=== PATIENT | male | born 1970 | race Caucasian/White ===

== ENCOUNTER 2023-05-08 23:37 | Inpatient (IN) | payer BC ==
[~2023-05-08] VITALS: Ht 185.4 cm; Wt 147.0 kg
[2023-05-08] MEDS ORDERED: LABETALOL HCL 5 MG/ML 20 ML VIAL IVP PRN (23:45)
[2023-05-08 23:54] LABS: BASOPHILS % (AUTO) 0.7 % (0.0-2.0); EOSINOPHILS % (AUTO) 2.3 % (1.0-6.0); HEMATOCRIT 44.8 % (41-53); HEMOGLOBIN 15.7 g/dL (13.5-17.5); LYMPHOCYTES # (AUTO) 2.3 K/uL (1.0-4.8); LYMPHOCYTES % (AUTO) 35.3 % (22.0-44.0); MEAN CORPUSCULAR HEMOGLOBIN 30.7 pg (26.0-34.0); MEAN CORPUSCULAR VOLUME 88 fL (80-100); MONOCYTES # (AUTO) 0.7 K/uL (0.1-1.0); MONOCYTES % (AUTO) 10.8 % (2.0-9.0); NEUTROPHILS # (AUTO) 3.3 K/uL (1.8-7.7); NEUTROPHILS % (AUTO) 50.9 % (40.0-70.0); PLATELET COUNT (AUTO) 187 K/uL (150-450); RED CELL DISTRIBUTION WIDTH 13.7 % (11.5-14.5); WHITE BLOOD COUNT (AUTO) 6.5 K/uL (4.5-11.0)
[2023-05-09] VITALS (13 sets, daily range): BP systolic 126–186; BP diastolic 69–101; PULSE 88–99; RESP 18–29; TEMP 97.7–100.4; O2SAT 93–100
[2023-05-09 00:07] LABS: PROTHROMBIN TIME 10.9 SEC (9.4-11.6)
[2023-05-09] MEDS ORDERED: SODIUM CHLORIDE 0.9% 100 ML ONE (00:13)
[2023-05-09] MEDS ORDERED: IOHEXOL 350 MG/ML 100 ML VIAL ONE (00:14)
[2023-05-09 00:18] LABS: ANION GAP 11 mmol/L (8-16); CARBON DIOXIDE 25 mmol/L (22-29); CHLORIDE 101 mmol/L (98-107); CREATININE 1.13 mg/dL (0.60-1.30); GLOMERULAR FILTR. RATE CALC > 60 mL/min (>60); GLUCOSE,RANDOM 168 mg/dL (70-110); POTASSIUM 3.6 mmol/L (3.5-5.1); SODIUM SERUM 137 mmol/L (136-145); UREA NITROGEN, BLOOD 19 mg/dL (7-18)
[2023-05-09 00:25] LABS: ALANINE AMINOTRANSFERASE 27 U/L (12-78); ALBUMIN 4.3 g/dL (3.4-5.0); ALKALINE PHOSPHATASE 87 U/L (46-116); ASPARTATE AMINOTRANSFERASE 31 U/L (15-37); BILIRUBIN,TOTAL 0.8 mg/dL (0.1-1.0); TOTAL PROTEIN, SERUM 7.4 g/dL (6.4-8.2)
[2023-05-09 00:43] LABS: TROPONIN I-HIGH SENSITIVITY 32 ng/L (<76)
[2023-05-09] MEDS: LABETALOL HCL 5 MG/ML 20 ML VIAL IVP PRN (01:08)
[2023-05-09 01:37] LABS: APPEARANCE,URINE CLEAR (CLEAR); BILIRUBIN,URINE NEGATIVE (NEGATIVE); COLOR,URINE COLORLESS (YELLOW); GLUCOSE, URINE (UA) 300-500 mg/dL (NEGATIVE); LEUKOCYTE ESTERASE ,URINE NEGATIVE (NEGATIVE); NITRATE,URINE NEGATIVE (NEGATIVE); OCCULT BLOOD,URINE NEGATIVE (NEGATIVE); PH,URINE 7.5 (5.0-8.0); PROTEIN,URINE NEGATIVE (NEGATIVE); SPECIFIC GRAVITIY, URINE 1.017 (1.003-1.030); UROBILINOGEN,URINE <=1.0 mg/dL (<=1.0)
[2023-05-09 01:40] LABS: PH,URINE DRUG SCREEN 7.5 (5.0-8.0)
[2023-05-09 01:43] LABS: ALCOHOL, URINE DRUG SCREEN NEGATIVE (NEGATIVE); AMPHET/METH SCREEN,URINE NEGATIVE (NEGATIVE); BARBITURATE SCREEN, URINE NEGATIVE (NEGATIVE); BENZODIAZEPINES SCREEN,URINE NEGATIVE (NEGATIVE); CANNABINOID SCREEN,URINE POSITIVE (NEGATIVE); COCAINE SCREEN,URINE NEGATIVE (NEGATIVE); METHADONE SCREEN, URINE NEGATIVE (NEGATIVE); OPIATE SCREEN,URINE NEGATIVE (NEGATIVE); PHENCYCLIDINE SCREEN,URINE NEGATIVE (NEGATIVE)
[2023-05-09 01:52] LABS: BACTERIA,URINE None Seen /HPF (None Seen); RBC,URINE None Seen /HPF (0-2); SQUAMOUS EPITHELIAL CELL,UR None Seen /LPF (None Seen); WBC,URINE None Seen /HPF (0-5)
[2023-05-09] MEDS: ONDANSETRON HCL 4 MG/2 ML VIAL IVP ONE (03:00)
[2023-05-09] MEDS: PROPOFOL 1000 MG/ISO-OSM 100 ML IV PRN ×2 (03:39→13:41)
[2023-05-09 04:47] LABS: ABG BASE EXCESS -3.7 mmol/L (-2.0-3.0); ABG CARBOXYHEMOGLOBIN 0.5 % (0.0-1.5); ABG HCO3 21.6 mmol/L (22.0-26.0); ABG METHEMOGLOBIN 0.3 % (0.0-1.5); ABG OXYGEN CONTENT 25.2 mL/dL (15.0-23.0); ABG OXYGEN SATURATION 99.3 % (95.0-98.0); ABG OXYHEMOGLOBIN 98.5 % (94.0-100.0); ABG PCO2 42 mmHg (35-45); ABG PH 7.341 (7.35-7.450); ABG TOTAL HEMOGLOBIN 17.9 G/dL (12.0-18.0); PO2, ARTERIAL BG 211.5 mmHg (84.0-92.0); SOURCE, BLOOD GAS ARTERIAL; TEMPERATURE, FAHRENHEIT, BG 97.9 FAHREN (96.0-98.6)
[2023-05-09 04:50] LABS: ALLEN TEST, BLOOD GAS Positive; O2 DEVICE,BLOOD GAS VENT (ROOM AIR); PEEP,BG 5 cm H2O; SITE, BLOOD GAS RT RADIAL; VT, ABG 450 ml
[2023-05-09] MEDS ORDERED: ONDANSETRON HCL 4 MG/2 ML VIAL IVP PRN (07:45)
[2023-05-09] MEDS: SODIUM CHLORIDE 0.9% 1,000 ML IV ONE (08:35)
[2023-05-09] MEDS: LevETIRAcetam 500 MG in DEXTROSE 5%-WATER 100 ML IV SCH (08:35)
[2023-05-09] MEDS ORDERED: SODIUM CHLORIDE 0.9% 250 ML IV ONE (08:44)
[2023-05-09] MEDS: HydrALAZINE HCL 20 MG/ML VIAL IVP PRN (08:45)
[2023-05-09] MEDS: AmLODIPine BESYLATE 5 MG TABLET PO SCH (09:41)
[2023-05-09] MEDS: PANTOPRAZOLE SODIUM 40 MG/VIAL IVP SCH (09:41)
[2023-05-09] MEDS: DOCUSATE SODIUM 100 MG CAPSULE PO SCH (09:41)
[2023-05-09] MEDS: ACETAMINOPHEN 325 MG TABLET PO PRN (10:10)
[2023-05-09] MEDS: NiCARDipine HCL 25 MG in SODIUM CHLORIDE 0.9% 240 ML IV PRN (10:10)
[2023-05-09] MEDS ORDERED: PROPOFOL 1000 MG/ISO-OSM 100 ML ONE (13:38)
[2023-05-09 15:52] LABS: APPEARANCE,URINE HAZY (CLEAR); BILIRUBIN,URINE NEGATIVE (NEGATIVE); COLOR,URINE YELLOW (YELLOW); GLUCOSE, URINE (UA) 150-200 mg/dL (NEGATIVE); KETONES,URINE NEGATIVE (NEGATIVE); LEUKOCYTE ESTERASE ,URINE NEGATIVE (NEGATIVE); NITRATE,URINE NEGATIVE (NEGATIVE); OCCULT BLOOD,URINE NEGATIVE (NEGATIVE); PH,URINE 5.5 (5.0-8.0); PROTEIN,URINE 100-200,SEE CONFIRM mg/dL (NEGATIVE); SPECIFIC GRAVITIY, URINE 1.044 (1.003-1.030); UROBILINOGEN,URINE <=1.0 mg/dL (<=1.0)
[2023-05-09 16:21] LABS: RBC,URINE None Seen /HPF (0-2)
[2023-05-09 16:22] LABS: BACTERIA,URINE Moderate /HPF (None Seen)
[2023-05-09 16:24] LABS: SULFOSALICYLIC ACID,URINE 3+ (Negative)
[2023-05-09] MEDS: CHLORHEXIDINE GLUCONATE 2% TOWELETTE [2'S/6'S] TP SCH (21:48)
[2023-05-10] VITALS (15 sets, daily range): BP systolic 131–155; BP diastolic 67–79; PULSE 85–108; RESP 24–32; TEMP 99–99.7; O2SAT 96–98
[2023-05-10 06:07] LABS: BASOPHILS % (AUTO) 0.1 % (0.0-2.0); EOSINOPHILS % (AUTO) 0 % (1.0-6.0); HEMATOCRIT 43.2 % (41-53); HEMOGLOBIN 15.2 g/dL (13.5-17.5); LYMPHOCYTES # (AUTO) 1.4 K/uL (1.0-4.8); LYMPHOCYTES % (AUTO) 11.9 % (22.0-44.0); MEAN CORPUSCULAR HEMOGLOBIN 30.9 pg (26.0-34.0); MEAN CORPUSCULAR HGB CONC 35.1 G/dL (31.0-37.0); MEAN CORPUSCULAR VOLUME 88 fL (80-100); MONOCYTES # (AUTO) 1.1 K/uL (0.1-1.0); MONOCYTES % (AUTO) 9.4 % (2.0-9.0); NEUTROPHILS # (AUTO) 9.1 K/uL (1.8-7.7); NEUTROPHILS % (AUTO) 78.6 % (40.0-70.0); PLATELET COUNT (AUTO) 192 K/uL (150-450); RED CELL DISTRIBUTION WIDTH 13.7 % (11.5-14.5); WHITE BLOOD COUNT (AUTO) 11.6 K/uL (4.5-11.0)
[2023-05-10 06:08] LABS: CREATININE 1.33 mg/dL (0.60-1.30); POTASSIUM 3.6 mmol/L (3.5-5.1)
[2023-05-10] MEDS: LOSARTAN POTASSIUM 25 MG TABLET PO SCH (09:16)
[2023-05-10] MEDS ORDERED: SODIUM CHLORIDE 3% 500 ML IV SCH (10:45)
[2023-05-10] MEDS ORDERED: DEXTROSE 50%-WATER 25 GM/50 ML SYRINGE IVP PRN (11:45)
[2023-05-10] MEDS: INSULIN LISPRO 100 UNITS/ML SQ PRN (12:02)
[2023-05-10] MEDS: SODIUM CHLORIDE 3% 500 ML IV SCH (12:19)
[2023-05-10 13:01] LABS: GLUCOMETER DEV NAME(LOC) ICUN.5; GLUCOSE,POINT OF CARE 262 MG/DL (70-110)
[2023-05-10 20:01] LABS: GLUCOMETER DEV NAME(LOC) ICUN.5; GLUCOSE,POINT OF CARE 188 MG/DL (70-110)
[2023-05-10] MEDS: LOSARTAN POTASSIUM 50 MG TABLET PO SCH (21:21)
[2023-05-10] MEDS: DOCUSATE SODIUM 100 MG/10 ML LIQUID UDCUP NG SCH (21:21)
[2023-05-10] MEDS: FentaNYL CIT 1000MCG/0.9% NACL 100 ML IV PRN (22:19)
[2023-05-10] MEDS: HydrALAZINE HCL 20 MG/ML VIAL IVP PRN (23:35)
[2023-05-11] VITALS (15 sets, daily range): BP systolic 105–164; BP diastolic 55–74; PULSE 70–103; RESP 19–28; TEMP 98.2–99.8; O2SAT 92–96
[2023-05-11 00:16] LABS: GLUCOSE,POINT OF CARE 215 MG/DL (70-110)
[2023-05-11] MEDS ORDERED: SODIUM CHLORIDE 0.9% 250 ML IV ONE (03:20)
[2023-05-11 05:58] LABS: BASOPHILS % (AUTO) 0.2 % (0.0-2.0); EOSINOPHILS % (AUTO) 0 % (1.0-6.0); HEMATOCRIT 43.2 % (41-53); HEMOGLOBIN 14.5 g/dL (13.5-17.5); LYMPHOCYTES # (AUTO) 0.9 K/uL (1.0-4.8); LYMPHOCYTES % (AUTO) 6.6 % (22.0-44.0); MEAN CORPUSCULAR HEMOGLOBIN 30.2 pg (26.0-34.0); MEAN CORPUSCULAR HGB CONC 33.6 G/dL (31.0-37.0); MEAN CORPUSCULAR VOLUME 90 fL (80-100); MONOCYTES # (AUTO) 1.2 K/uL (0.1-1.0); MONOCYTES % (AUTO) 9.4 % (2.0-9.0); NEUTROPHILS # (AUTO) 11.1 K/uL (1.8-7.7); NEUTROPHILS % (AUTO) 83.8 % (40.0-70.0); PLATELET COUNT (AUTO) 175 K/uL (150-450); RED CELL DISTRIBUTION WIDTH 13.9 % (11.5-14.5); WHITE BLOOD COUNT (AUTO) 13.3 K/uL (4.5-11.0)
[2023-05-11 06:11] LABS: ANION GAP 11 mmol/L (8-16); CALCIUM, TOTAL 7.5 mg/dL (8.8-10.5); CARBON DIOXIDE 21 mmol/L (22-29); CHLORIDE 118 mmol/L (98-107); CREATININE 1.22 mg/dL (0.60-1.30); GLOMERULAR FILTR. RATE CALC > 60 mL/min (>60); GLUCOSE,RANDOM 239 mg/dL (70-110); POTASSIUM 3.9 mmol/L (3.5-5.1); SODIUM SERUM 150 mmol/L (136-145); UREA NITROGEN, BLOOD 28 mg/dL (7-18)
[2023-05-11 12:36] LABS: GLUCOSE,POINT OF CARE 239 MG/DL (70-110)
[2023-05-11] MEDS: DEXMEDETOMIDINE HCL 400 MCG in SODIUM CHLORIDE 0.9% 96 ML IV PRN (17:12)
[2023-05-11 18:46] LABS: GLUCOSE,POINT OF CARE 220 MG/DL (70-110)
[2023-05-11 18:55] LABS: GLUCOMETER DEV NAME(LOC) ICUN.5; GLUCOSE,POINT OF CARE 201 MG/DL (70-110)
[2023-05-11] MEDS: HydrALAZINE HCL 25 MG TABLET PO SCH (21:00)
[2023-05-12] VITALS (14 sets, daily range): BP systolic 121–137; BP diastolic 66–77; PULSE 68–78; RESP 18–28; TEMP 97.7–99.6; O2SAT 92–98
[2023-05-12 01:16] LABS: GLUCOMETER DEV NAME(LOC) ICUN.5; GLUCOSE,POINT OF CARE 203 MG/DL (70-110)
[2023-05-12 06:01] LABS: GLUCOMETER DEV NAME(LOC) ICUN.5; GLUCOSE,POINT OF CARE 200 MG/DL (70-110)
[2023-05-12 06:20] LABS: BASOPHILS % (AUTO) 0.2 % (0.0-2.0); EOSINOPHILS % (AUTO) 0 % (1.0-6.0); HEMATOCRIT 41.9 % (41-53); HEMOGLOBIN 13.8 g/dL (13.5-17.5); LYMPHOCYTES % (AUTO) 11.5 % (22.0-44.0); MEAN CORPUSCULAR HEMOGLOBIN 30.3 pg (26.0-34.0); MEAN CORPUSCULAR HGB CONC 32.9 G/dL (31.0-37.0); MEAN CORPUSCULAR VOLUME 92 fL (80-100); MONOCYTES # (AUTO) 0.7 K/uL (0.1-1.0); MONOCYTES % (AUTO) 8.4 % (2.0-9.0); NEUTROPHILS % (AUTO) 79.9 % (40.0-70.0); PLATELET COUNT (AUTO) 161 K/uL (150-450); RED BLOOD CELL COUNT(AUTO) 4.55 MIL/uL (4.50-5.90); RED CELL DISTRIBUTION WIDTH 14.5 % (11.5-14.5); WHITE BLOOD COUNT (AUTO) 8.7 K/uL (4.5-11.0)
[2023-05-12 06:28] LABS: ANION GAP 13 mmol/L (8-16); CARBON DIOXIDE 21 mmol/L (22-29); CHLORIDE 128 mmol/L (98-107); CREATININE 1.04 mg/dL (0.60-1.30); GLOMERULAR FILTR. RATE CALC > 60 mL/min (>60); GLUCOSE,RANDOM 208 mg/dL (70-110); POTASSIUM 3.7 mmol/L (3.5-5.1); UREA NITROGEN, BLOOD 33 mg/dL (7-18)
[2023-05-12 06:42] LABS: SODIUM SERUM 162 mmol/L (136-145)
[2023-05-12 12:17] LABS: GLUCOSE,POINT OF CARE 202 MG/DL (70-110)
[2023-05-12 15:33] LABS: ABG BASE EXCESS -7.9 mmol/L (-2.0-3.0); ABG CARBOXYHEMOGLOBIN 0.4 % (0.0-1.5); ABG METHEMOGLOBIN 0.1 % (0.0-1.5); ABG OXYHEMOGLOBIN 97.5 % (94.0-100.0); ABG PCO2 34 mmHg (35-45); ABG PH 7.339 (7.35-7.450); ABG TOTAL HEMOGLOBIN 14.5 G/dL (12.0-18.0); ALLEN TEST, BLOOD GAS Positive; O2 DEVICE,BLOOD GAS VENTILATOR (ROOM AIR); PO2, ARTERIAL BG 109.1 mmHg (84.0-92.0); SITE, BLOOD GAS RT RADIAL; SOURCE, BLOOD GAS ARTERIAL; TEMPERATURE, FAHRENHEIT, BG 99.3 FAHREN (96.0-98.6)
[2023-05-12 15:34] LABS: PEEP,BG 5 cm H2O; VT, ABG 18 ml
[2023-05-12 19:11] LABS: GLUCOSE,POINT OF CARE 223 MG/DL (70-110)
[2023-05-13] VITALS (14 sets, daily range): BP systolic 133–169; BP diastolic 66–74; PULSE 67–98; RESP 19–24; TEMP 99.2–100.9; O2SAT 91–96
[2023-05-13] MEDS ORDERED: SODIUM CHLORIDE 0.9% 250 ML IV ONE (05:21)
[2023-05-13 05:31] LABS: GLUCOSE,POINT OF CARE 196 MG/DL (70-110)
[2023-05-13 06:22] LABS: GLUCOMETER DEV NAME(LOC) ICUN.5; GLUCOSE,POINT OF CARE 215 MG/DL (70-110)
[2023-05-13 07:23] LABS: BASOPHILS % (AUTO) 0.3 % (0.0-2.0); EOSINOPHILS % (AUTO) 0.1 % (1.0-6.0); HEMOGLOBIN 15.6 g/dL (13.5-17.5); LYMPHOCYTES # (AUTO) 2.1 K/uL (1.0-4.8); LYMPHOCYTES % (AUTO) 23.8 % (22.0-44.0); MEAN CORPUSCULAR HEMOGLOBIN 30.5 pg (26.0-34.0); MEAN CORPUSCULAR HGB CONC 33.1 G/dL (31.0-37.0); MEAN CORPUSCULAR VOLUME 92 fL (80-100); MONOCYTES # (AUTO) 0.7 K/uL (0.1-1.0); MONOCYTES % (AUTO) 8.5 % (2.0-9.0); NEUTROPHILS % (AUTO) 67.3 % (40.0-70.0); PLATELET COUNT (AUTO) 170 K/uL (150-450); RED CELL DISTRIBUTION WIDTH 15.3 % (11.5-14.5); WHITE BLOOD COUNT (AUTO) 8.8 K/uL (4.5-11.0)
[2023-05-13 08:05] LABS: CALCIUM, TOTAL 8.6 mg/dL (8.8-10.5); CARBON DIOXIDE 23 mmol/L (22-29); GLOMERULAR FILTR. RATE CALC > 60 mL/min (>60); GLUCOSE,RANDOM 224 mg/dL (70-110); UREA NITROGEN, BLOOD 42 mg/dL (7-18)
[2023-05-13 08:14] LABS: ANION GAP 10 mmol/L (8-16); CHLORIDE 126 mmol/L (98-107); POTASSIUM 4.2 mmol/L (3.5-5.1); SODIUM SERUM 159 mmol/L (136-145)
[2023-05-13] MEDS: MIDAZOLAM HCL 100 MG in SODIUM CHLORIDE 0.9% 180 ML IV PRN (09:31)
[2023-05-13] MEDS: LABETALOL HCL 5 MG/ML 20 ML VIAL IVP ONE (09:38)
[2023-05-13] MEDS: LABETALOL HCL 5 MG/ML 20 ML VIAL IVP PRN (11:04)
[2023-05-13 12:41] LABS: GLUCOMETER DEV NAME(LOC) ICUN.5; GLUCOSE,POINT OF CARE 186 MG/DL (70-110)
[2023-05-13] MEDS: *CLINICAL-CEFEPIME DOSING CLINICAL ONE (13:09)
[2023-05-13] MEDS: HydrALAZINE HCL 50 MG TABLET PO SCH (13:18)
[2023-05-13] MEDS: CEFEPIME HCL 2 GM in DEXTROSE 5%-WATER 50 ML IV SCH (14:11)
[2023-05-13] MEDS: VANCOMYCIN 1GM/WATER(PEG/NADA) 200 ML IV SCH (16:23)
[2023-05-13 21:21] LABS: GLUCOSE,POINT OF CARE 210 MG/DL (70-110)
[2023-05-13 21:33] LABS: BASOPHILS % (AUTO) 0.9 % (0.0-2.0); EOSINOPHILS % (AUTO) 0.3 % (1.0-6.0); HEMATOCRIT 39.7 % (41-53); HEMOGLOBIN 13.2 g/dL (13.5-17.5); LYMPHOCYTES # (AUTO) 2.3 K/uL (1.0-4.8); LYMPHOCYTES % (AUTO) 16.9 % (22.0-44.0); MEAN CORPUSCULAR HEMOGLOBIN 30.6 pg (26.0-34.0); MEAN CORPUSCULAR HGB CONC 33.3 G/dL (31.0-37.0); MEAN CORPUSCULAR VOLUME 92 fL (80-100); MONOCYTES # (AUTO) 1.5 K/uL (0.1-1.0); MONOCYTES % (AUTO) 10.7 % (2.0-9.0); NEUTROPHILS # (AUTO) 9.7 K/uL (1.8-7.7); NEUTROPHILS % (AUTO) 71.2 % (40.0-70.0); PLATELET COUNT (AUTO) 263 K/uL (150-450); RED BLOOD CELL COUNT(AUTO) 4.33 MIL/uL (4.50-5.90); RED CELL DISTRIBUTION WIDTH 15.2 % (11.5-14.5); WHITE BLOOD COUNT (AUTO) 13.6 K/uL (4.5-11.0)
[2023-05-14] VITALS (13 sets, daily range): BP systolic 132–153; BP diastolic 62–80; PULSE 88–138; RESP 18–28; TEMP 98.8–101.2; O2SAT 88–93
[2023-05-14 05:47] LABS: GLUCOSE,POINT OF CARE 214 MG/DL (70-110)
[2023-05-14 06:11] LABS: CALCIUM, TOTAL 8.3 mg/dL (8.8-10.5); CREATININE 1.27 mg/dL (0.60-1.30); POTASSIUM 3.4 mmol/L (3.5-5.1)
[2023-05-14 10:16] LABS: GLUCOSE,POINT OF CARE 160 MG/DL (70-110)
[2023-05-14] MEDS: POTASSIUM CHL 10 MEQ/WATER 50 ML IV SCH (10:43)
[2023-05-14 17:38] LABS: CALCIUM, TOTAL 8.4 mg/dL (8.8-10.5); CREATININE 1.34 mg/dL (0.60-1.30); POTASSIUM 3.2 mmol/L (3.5-5.1)
[2023-05-14 17:44] LABS: ALBUMIN 2.2 g/dL (3.4-5.0); BILIRUBIN,TOTAL 2.4 mg/dL (0.1-1.0); TOTAL PROTEIN, SERUM 6.2 g/dL (6.4-8.2)
[2023-05-14 17:51] LABS: TROPONIN I-HIGH SENSITIVITY 95 ng/L (<76)
[2023-05-14 17:52] LABS: PHOSPHORUS 1.2 mg/dL (2.5-4.9)
[2023-05-14] MEDS: METOPROLOL TARTRATE 5 MG/5 ML VIAL IVP ONE ×2 (19:28→20:35)
[2023-05-14] MEDS ORDERED: SODIUM CHLORIDE 0.9% 250 ML IV ONE (20:57)
[2023-05-14] MEDS ORDERED: POTASSIUM PHOS,M-BASIC-D-BASIC 20 MEQ in DEXTROSE 5%-WATER 100 ML IV ONE (21:00)
[2023-05-14] MEDS: POTASSIUM CHLORIDE 10% 40 MEQ/30 ML LIQUID UDCUP NG ONE (21:54)
[2023-05-14 21:56] LABS: GLUCOSE,POINT OF CARE 170 MG/DL (70-110)
[2023-05-14] MEDS: AMIODARONE HCL 150 MG in DEXTROSE 5%-WATER 97 ML IV ONE (22:06)
[2023-05-14] MEDS: AMIODARONE HCL 360 MG in DEXTROSE 5%-WATER 242.8 ML IV ONE (22:10)
[2023-05-14 22:26] LABS: GLUCOMETER DEV NAME(LOC) ICUN.5; GLUCOSE,POINT OF CARE 175 MG/DL (70-110)
[2023-05-14] MEDS: POTASSIUM PHOS,M-BASIC-D-BASIC 20 MEQ in DEXTROSE 5%-WATER 100 ML IV ONE (22:38)
[2023-05-14] MEDS: LORazepam 2 MG/ML VIAL IVP ONE (23:38)
[2023-05-15] VITALS (15 sets, daily range): BP systolic 140–163; BP diastolic 64–79; PULSE 84–133; RESP 18–29; TEMP 100–101.2; O2SAT 91–98
[2023-05-15] MEDS: ACETAMINOPHEN 500 MG/ISO-OSM 50 ML IV ONE (00:23)
[2023-05-15] MEDS: METOPROLOL TARTRATE 5 MG/5 ML VIAL IVP SCH (01:57)
[2023-05-15 02:31] LABS: GLUCOSE,POINT OF CARE 216 MG/DL (70-110)
[2023-05-15] MEDS: AMIODARONE HCL 540 MG in DEXTROSE 5%-WATER 239.2 ML IV ONE (03:12)
[2023-05-15 05:49] LABS: BASOPHILS % (AUTO) 0.5 % (0.0-2.0); EOSINOPHILS % (AUTO) 1.7 % (1.0-6.0); HEMATOCRIT 42.1 % (41-53); HEMOGLOBIN 13.7 g/dL (13.5-17.5); LYMPHOCYTES # (AUTO) 1.5 K/uL (1.0-4.8); LYMPHOCYTES % (AUTO) 13.9 % (22.0-44.0); MEAN CORPUSCULAR HEMOGLOBIN 29.9 pg (26.0-34.0); MEAN CORPUSCULAR HGB CONC 32.4 G/dL (31.0-37.0); MEAN CORPUSCULAR VOLUME 92 fL (80-100); MONOCYTES # (AUTO) 1.1 K/uL (0.1-1.0); MONOCYTES % (AUTO) 9.7 % (2.0-9.0); NEUTROPHILS % (AUTO) 74.2 % (40.0-70.0); PLATELET COUNT (AUTO) 212 K/uL (150-450); RED BLOOD CELL COUNT(AUTO) 4.57 MIL/uL (4.50-5.90); RED CELL DISTRIBUTION WIDTH 15.7 % (11.5-14.5); WHITE BLOOD COUNT (AUTO) 10.8 K/uL (4.5-11.0)
[2023-05-15 06:07] LABS: POTASSIUM 3.3 mmol/L (3.5-5.1)
[2023-05-15 06:08] LABS: CALCIUM, TOTAL 8.1 mg/dL (8.8-10.5); CREATININE 1.42 mg/dL (0.60-1.30); VANCOMYCIN,RANDOM 19.5 mcg/mL (25.0-50.0)
[2023-05-15 06:21] LABS: GLUCOSE,POINT OF CARE 183 MG/DL (70-110)
[2023-05-15 08:30] LABS: MAGNESIUM 2.6 mg/dL (1.80-2.40)
[2023-05-15] MEDS ORDERED: SODIUM CHLORIDE 0.9% 250 ML IV ONE ×2 (08:31→13:49)
[2023-05-15] MEDS: POTASSIUM CHL 10 MEQ/WATER 50 ML IV SCH ×2 (09:41→20:56)
[2023-05-15] MEDS: AmLODIPine BESYLATE 5 MG TABLET PO SCH (09:41)
[2023-05-15 10:11] LABS: COVID AG,FIA SOURCE NASAL SWAB
[2023-05-15 10:31] LABS: INFLUENZA TYPE A NEGATIVE FOR TYPE A (NEGATIVE); INFLUENZA TYPE B NEGATIVE FOR TYPE B (NEGATIVE); SARS-COV2 (COVID) ANTIGEN,FIA Negative (Negative)
[2023-05-15 12:36] LABS: GLUCOMETER DEV NAME(LOC) ICUN.5; GLUCOSE,POINT OF CARE 211 MG/DL (70-110)
[2023-05-15 14:01] LABS: CALCIUM, TOTAL 7.9 mg/dL (8.8-10.5); CREATININE 1.36 mg/dL (0.60-1.30); MAGNESIUM 2.7 mg/dL (1.80-2.40); PHOSPHORUS 1.8 mg/dL (2.5-4.9); POTASSIUM 3.4 mmol/L (3.5-5.1)
[2023-05-15] MEDS: POTASSIUM PHOS,M-BASIC-D-BASIC 20 MEQ in DEXTROSE 5%-WATER 100 ML IV ONE (15:07)
[2023-05-15] MEDS: LABETALOL HCL 5 MG/ML 20 ML VIAL IVP PRN (16:05)
[2023-05-15] MEDS: FUROSEMIDE 20 MG/2 ML VIAL IVP ONE (17:22)
[2023-05-15 19:43] LABS: CALCIUM, TOTAL 7.7 mg/dL (8.8-10.5); CREATININE 1.4 mg/dL (0.60-1.30); PHOSPHORUS 2.4 mg/dL (2.5-4.9); POTASSIUM 3.4 mmol/L (3.5-5.1)
[2023-05-15] MEDS: AMIODARONE HCL 750 MG in DEXTROSE 5%-WATER 485 ML IV SCH (21:41)
[2023-05-15 22:16] LABS: GLUCOMETER DEV NAME(LOC) ICUN.5; GLUCOSE,POINT OF CARE 229 MG/DL (70-110)
[2023-05-16] VITALS (15 sets, daily range): BP systolic 112–150; BP diastolic 34–67; PULSE 71–105; RESP 16–27; TEMP 99.8–100.7; O2SAT 73–94
[2023-05-16 00:36] LABS: GLUCOMETER DEV NAME(LOC) ICUN.5; GLUCOSE,POINT OF CARE 224 MG/DL (70-110)
[2023-05-16] MEDS ORDERED: SODIUM CHLORIDE 0.9% 250 ML IV ONE (01:36)
[2023-05-16 05:25] LABS: BASOPHILS % (AUTO) 0.5 % (0.0-2.0); HEMATOCRIT 44.3 % (41-53); HEMOGLOBIN 14.2 g/dL (13.5-17.5); LYMPHOCYTES # (AUTO) 1.1 K/uL (1.0-4.8); LYMPHOCYTES % (AUTO) 7.8 % (22.0-44.0); MEAN CORPUSCULAR HGB CONC 32.1 G/dL (31.0-37.0); MEAN CORPUSCULAR VOLUME 94 fL (80-100); MONOCYTES # (AUTO) 0.9 K/uL (0.1-1.0); MONOCYTES % (AUTO) 5.9 % (2.0-9.0); NEUTROPHILS # (AUTO) 12.3 K/uL (1.8-7.7); NEUTROPHILS % (AUTO) 84.8 % (40.0-70.0); PLATELET COUNT (AUTO) 206 K/uL (150-450); RED BLOOD CELL COUNT(AUTO) 4.73 MIL/uL (4.50-5.90); RED CELL DISTRIBUTION WIDTH 16.2 % (11.5-14.5); WHITE BLOOD COUNT (AUTO) 14.5 K/uL (4.5-11.0)
[2023-05-16 05:26] LABS: CALCIUM, TOTAL 7.7 mg/dL (8.8-10.5); CREATININE 1.52 mg/dL (0.60-1.30); POTASSIUM 3.9 mmol/L (3.5-5.1)
[2023-05-16 05:48] LABS: MAGNESIUM 2.6 mg/dL (1.80-2.40); PHOSPHORUS 3.6 mg/dL (2.5-4.9)
[2023-05-16 08:01] LABS: GLUCOMETER DEV NAME(LOC) ICUN.5; GLUCOSE,POINT OF CARE 205 MG/DL (70-110)
[2023-05-16] MEDS: AMIODARONE HCL 200 MG TABLET PO SCH (11:00)
[2023-05-16] MEDS: CeFAZolin 2 GM/DEXTROSE 50 ML IV SCH (16:24)
[2023-05-16 18:36] LABS: GLUCOMETER DEV NAME(LOC) ICUN.5; GLUCOSE,POINT OF CARE 182 MG/DL (70-110)
[2023-05-17] VITALS (13 sets, daily range): BP systolic 94–128; BP diastolic 39–61; PULSE 78–117; RESP 18–36; TEMP 98.2–100.6; O2SAT 89–98
[2023-05-17 00:01] LABS: GLUCOSE,POINT OF CARE 188 MG/DL (70-110)
[2023-05-17 00:35] LABS: ABG BASE EXCESS -10.9 mmol/L (-2.0-3.0); ABG HCO3 14.3 mmol/L (22.0-26.0); ABG OXYGEN CONTENT 15.3 mL/dL (15.0-23.0); ABG OXYHEMOGLOBIN 73.7 % (94.0-100.0); ABG TOTAL HEMOGLOBIN 14.8 G/dL (12.0-18.0); PO2, ARTERIAL BG 48.6 mmHg (84.0-92.0); SOURCE, BLOOD GAS ARTERIAL; TEMPERATURE, FAHRENHEIT, BG 100.7 FAHREN (96.0-98.6)
[2023-05-17 00:37] LABS: ABG OXYGEN SATURATION 75.2 % (95.0-98.0); ABG PCO2 92 mmHg (35-45); ABG PH 6.976 (7.35-7.450); O2 DEVICE,BLOOD GAS VENTILATOR (ROOM AIR); SITE, BLOOD GAS RT BRACHIAL
[2023-05-17 00:38] LABS: PEEP,BG 5 cm H2O; SPONTANEOUS VT, BG 592 ml; VT, ABG 450 ml
[2023-05-17] MEDS: NOREPINEPHRINE 8 MG/0.9 % NACL 250 ML IV PRN (01:17)
[2023-05-17 01:25] LABS: GLUCOMETER DEV NAME(LOC) ICUN.5; GLUCOSE,POINT OF CARE 156 MG/DL (70-110)
[2023-05-17] MEDS: *CLINICAL-CEFEPIME DOSING CLINICAL ONE (01:49)
[2023-05-17 02:05] LABS: ABG BASE EXCESS -10.7 mmol/L (-2.0-3.0); ABG CARBOXYHEMOGLOBIN 0.9 % (0.0-1.5); ABG HCO3 15.6 mmol/L (22.0-26.0); ABG METHEMOGLOBIN 0.8 % (0.0-1.5); ABG OXYGEN SATURATION 88.4 % (95.0-98.0); ABG OXYHEMOGLOBIN 86.9 % (94.0-100.0); ABG PCO2 59 mmHg (35-45); ABG TOTAL HEMOGLOBIN 14.8 G/dL (12.0-18.0); PO2, ARTERIAL BG 55.4 mmHg (84.0-92.0); SOURCE, BLOOD GAS ARTERIAL; TEMPERATURE, FAHRENHEIT, BG 99.5 FAHREN (96.0-98.6)
[2023-05-17 02:06] LABS: ABG PH 7.117 (7.35-7.450); O2 DEVICE,BLOOD GAS VENTILATOR (ROOM AIR); SITE, BLOOD GAS RT BRACHIAL; VT, ABG 500 ml
[2023-05-17 06:06] LABS: GLUCOMETER DEV NAME(LOC) ICUN.5; GLUCOSE,POINT OF CARE 128 MG/DL (70-110)
[2023-05-17 06:31] LABS: MEAN CORPUSCULAR HEMOGLOBIN 30.2 pg (26.0-34.0); MEAN CORPUSCULAR HGB CONC 31.8 G/dL (31.0-37.0); MEAN CORPUSCULAR VOLUME 95 fL (80-100); PLATELET COUNT (AUTO) 203 K/uL (150-450); RED BLOOD CELL COUNT(AUTO) 4.64 MIL/uL (4.50-5.90); RED CELL DISTRIBUTION WIDTH 16.3 % (11.5-14.5); WHITE BLOOD COUNT (AUTO) 23.9 K/uL (4.5-11.0)
[2023-05-17 07:32] LABS: CALCIUM, TOTAL 7.9 mg/dL (8.8-10.5); CREATININE 3.4 mg/dL (0.60-1.30); POTASSIUM 4.1 mmol/L (3.5-5.1)
[2023-05-17] MEDS ORDERED: VANCOMYCIN HCL 1.25 GM in DEXTROSE 5%-WATER 250 ML IV SCH (08:00)
[2023-05-17] MEDS ORDERED: VANCOMYCIN 1GM/WATER(PEG/NADA) 200 ML IV SCH (08:00)
[2023-05-17] MEDS ORDERED: CEFEPIME HCL 2 GM in DEXTROSE 5%-WATER 50 ML IV SCH (08:00)
[2023-05-17 09:36] LABS: BAND NEUTROPHILS % (MANUAL) 25 % (0-5); LYMPHOCYTES % (MANUAL) 8 % (22-44); RBC MORPHOLOGY COMMENT NORMAL RBC MORPH; SEGMENTED NEUTROPHILS % 67 % (40-70); TOTAL CELLS COUNTED 100
[2023-05-17] MEDS: CEFEPIME HCL 2 GM in DEXTROSE 5%-WATER 50 ML IV SCH (11:20)
[2023-05-17] MEDS: VANCOMYCIN 1GM/WATER(PEG/NADA) 200 ML IV SCH (11:21)
[2023-05-17 15:10] LABS: CALCIUM, TOTAL 7.1 mg/dL (8.8-10.5); CREATININE 3.99 mg/dL (0.60-1.30); POTASSIUM 5.4 mmol/L (3.5-5.1)
[2023-05-17 15:14] LABS: MAGNESIUM 2.9 mg/dL (1.80-2.40); PHOSPHORUS 6.6 mg/dL (2.5-4.9)
[2023-05-17] MEDS: HEPARIN SODIUM,PORCINE 1,000 UNITS/ML VIAL IVCATH ONE (18:40)
[2023-05-17 18:46] LABS: GLUCOMETER DEV NAME(LOC) ICUN.5; GLUCOSE,POINT OF CARE 188 MG/DL (70-110)
[2023-05-18] VITALS (21 sets, daily range): BP systolic 121–171; BP diastolic 62–87; PULSE 73–92; RESP 18–34; TEMP 98.2–99.1; O2SAT 93–97
[2023-05-18 05:35] LABS: HEMATOCRIT 41.2 % (41-53); HEMOGLOBIN 13.4 g/dL (13.5-17.5); MEAN CORPUSCULAR HEMOGLOBIN 30.8 pg (26.0-34.0); MEAN CORPUSCULAR HGB CONC 32.5 G/dL (31.0-37.0); MEAN CORPUSCULAR VOLUME 95 fL (80-100); PLATELET COUNT (AUTO) 145 K/uL (150-450); RED BLOOD CELL COUNT(AUTO) 4.36 MIL/uL (4.50-5.90); WHITE BLOOD COUNT (AUTO) 16.2 K/uL (4.5-11.0)
[2023-05-18 05:43] LABS: CALCIUM, TOTAL 7.6 mg/dL (8.8-10.5); CREATININE 4.99 mg/dL (0.60-1.30); PHOSPHORUS 5.4 mg/dL (2.5-4.9); POTASSIUM 4.4 mmol/L (3.5-5.1)
[2023-05-18 06:27] LABS: GLUCOMETER DEV NAME(LOC) ICUN.5; GLUCOSE,POINT OF CARE 180 MG/DL (70-110)
[2023-05-18 07:00] LABS: BAND NEUTROPHILS % (MANUAL) 18 % (0-5); BASOPHILS % (MANUAL) 1 % (0-2); LYMPHOCYTES % (MANUAL) 4 % (22-44); MONOCYTES % (MANUAL) 4 % (2-9); SEGMENTED NEUTROPHILS % 73 % (40-70); TOTAL CELLS COUNTED 100
[2023-05-18] MEDS ORDERED: VANCOMYCIN 1GM/WATER(PEG/NADA) 200 ML IV PRN (07:30)
[2023-05-18 13:06] LABS: GLUCOMETER DEV NAME(LOC) ICUN.5; GLUCOSE,POINT OF CARE 214 MG/DL (70-110)
[2023-05-18 13:36] LABS: GLUCOMETER DEV NAME(LOC) ICUN.5; GLUCOSE,POINT OF CARE 182 MG/DL (70-110)
[2023-05-18] MEDS ORDERED: SODIUM CHLORIDE 0.9% 1,000 ML ONE (14:19)
[2023-05-18] MEDS: LABETALOL HCL 5 MG/ML 20 ML VIAL IVP PRN (14:58)
[2023-05-18 16:46] LABS: ABG BASE EXCESS -6.5 mmol/L (-2.0-3.0); ABG HCO3 19.3 mmol/L (22.0-26.0); ABG METHEMOGLOBIN 0.2 % (0.0-1.5); ABG OXYGEN SATURATION 93.1 % (95.0-98.0); ABG PCO2 44 mmHg (35-45); ABG TOTAL HEMOGLOBIN 15.5 G/dL (12.0-18.0); PO2, ARTERIAL BG 65.5 mmHg (84.0-92.0); SOURCE, BLOOD GAS ARTERIAL; TEMPERATURE, FAHRENHEIT, BG 99.3 FAHREN (96.0-98.6)
[2023-05-18] MEDS ORDERED: HEPARIN SODIUM,PORCINE 1,000 UNITS/ML VIAL ONE (16:46)
[2023-05-18 16:47] LABS: ALLEN TEST, BLOOD GAS Positive; O2 DEVICE,BLOOD GAS VENTILATOR (ROOM AIR); PEEP,BG 8 cm H2O; SITE, BLOOD GAS LFT RADIAL; VT, ABG 500 ml
[2023-05-18] MEDS: HEPARIN SODIUM,PORCINE 1,000 UNITS/ML VIAL IVCATH ONE ×2 (17:44→17:45)
[2023-05-18 18:52] LABS: APPEARANCE,URINE TURBID (CLEAR); COLOR,URINE DARK YELLOW (YELLOW); GLUCOSE, URINE (UA) 150-200 mg/dL (NEGATIVE); KETONES,URINE NEGATIVE (NEGATIVE); LEUKOCYTE ESTERASE ,URINE TRACE (NEGATIVE); NITRATE,URINE NEGATIVE (NEGATIVE); OCCULT BLOOD,URINE NEGATIVE (NEGATIVE); PH,URINE 5.5 (5.0-8.0); PROTEIN,URINE 300-600,SEE CONFIRM mg/dL (NEGATIVE); SPECIFIC GRAVITIY, URINE 1.036 (1.003-1.030); UROBILINOGEN,URINE <=1.0 mg/dL (<=1.0)
[2023-05-18 18:57] LABS: BILIRUBIN,URINE SMALL (NEGATIVE)
[2023-05-18 19:03] LABS: CREATININE,URINE RANDOM 122.2 mg/dL (30.0-125.0); SODIUM,URINE RANDOM 46 mmol/l (20-110)
[2023-05-18 19:16] LABS: AMORPHOUS SEDIMENT,UR Moderate /LPF (None Seen); BACTERIA,URINE Moderate /HPF (None Seen); RBC,URINE 0-2 /HPF (0-2); SQUAMOUS EPITHELIAL CELL,UR Few /LPF (None Seen); SULFOSALICYLIC ACID,URINE 4+ (Negative); WBC,URINE 0-2 /HPF (0-5)
[2023-05-18] MEDS ORDERED: SODIUM CHLORIDE 0.9% 250 ML IV ONE (20:28)
[2023-05-18 20:33] LABS: CALCIUM, TOTAL 7.6 mg/dL (8.8-10.5); CREATININE 5.12 mg/dL (0.60-1.30); POTASSIUM 4.6 mmol/L (3.5-5.1)
[2023-05-18 20:37] LABS: MAGNESIUM 2.7 mg/dL (1.80-2.40); PHOSPHORUS 5.6 mg/dL (2.5-4.9)
[2023-05-18 22:51] LABS: GLUCOMETER DEV NAME(LOC) ICUN.5; GLUCOSE,POINT OF CARE 173 MG/DL (70-110)
[2023-05-19] VITALS (25 sets, daily range): BP systolic 104–237; BP diastolic 42–102; PULSE 68–100; RESP 24–38; TEMP 98.4–99; O2SAT 94–98
[2023-05-19 05:06] LABS: GLUCOMETER DEV NAME(LOC) ICUN.5; GLUCOSE,POINT OF CARE 210 MG/DL (70-110)
[2023-05-19 05:54] LABS: HEMATOCRIT 39.6 % (41-53); MEAN CORPUSCULAR HEMOGLOBIN 30.4 pg (26.0-34.0); MEAN CORPUSCULAR HGB CONC 32.7 G/dL (31.0-37.0); MEAN CORPUSCULAR VOLUME 93 fL (80-100); PLATELET COUNT (AUTO) 157 K/uL (150-450); RED BLOOD CELL COUNT(AUTO) 4.26 MIL/uL (4.50-5.90); RED CELL DISTRIBUTION WIDTH 15.4 % (11.5-14.5); WHITE BLOOD COUNT (AUTO) 13.5 K/uL (4.5-11.0)
[2023-05-19 06:16] LABS: CALCIUM, TOTAL 7.6 mg/dL (8.8-10.5); CREATININE 5.56 mg/dL (0.60-1.30); POTASSIUM 4.7 mmol/L (3.5-5.1); VANCOMYCIN,RANDOM 25.4 mcg/mL (25.0-50.0)
[2023-05-19 07:55] LABS: BAND NEUTROPHILS % (MANUAL) 1 % (0-5); LYMPHOCYTES % (MANUAL) 4 % (22-44); MONOCYTES % (MANUAL) 3 % (2-9); SEGMENTED NEUTROPHILS % 92 % (40-70); TOTAL CELLS COUNTED 100; WBC MORPHOLOGY TOXIC GRANULATION
[2023-05-19] MEDS: CEFEPIME HCL 2 GM in DEXTROSE 5%-WATER 50 ML IV SCH (07:57)
[2023-05-19] MEDS: MAGNESIUM HYDROXIDE SUSPENSION 30 ML UDCUP PO PRN (07:58)
[2023-05-19] MEDS: AmLODIPine BESYLATE 5 MG TABLET NG SCH (11:06)
[2023-05-19 11:22] LABS: GLUCOMETER DEV NAME(LOC) ICUN.5; GLUCOSE,POINT OF CARE 202 MG/DL (70-110)
[2023-05-19 13:46] LABS: GLUCOMETER DEV NAME(LOC) ICUN.5; GLUCOSE,POINT OF CARE 198 MG/DL (70-110)
[2023-05-19] MEDS: HydrALAZINE HCL 20 MG/ML VIAL IVP ONE (16:40)
[2023-05-19 21:06] LABS: GLUCOMETER DEV NAME(LOC) ICUN.5; GLUCOSE,POINT OF CARE 171 MG/DL (70-110)
[2023-05-20] VITALS (14 sets, daily range): BP systolic 96–141; BP diastolic 53–70; PULSE 63–71; RESP 30–36; TEMP 98.1–98.7; O2SAT 97–99
[2023-05-20 01:06] LABS: GLUCOMETER DEV NAME(LOC) ICUN.5; GLUCOSE,POINT OF CARE 193 MG/DL (70-110)
[2023-05-20 06:46] LABS: CALCIUM, TOTAL 7.5 mg/dL (8.8-10.5); CREATININE 5.71 mg/dL (0.60-1.30); POTASSIUM 4.6 mmol/L (3.5-5.1)
[2023-05-20 06:54] LABS: BASOPHILS % (AUTO) 0.5 % (0.0-2.0); EOSINOPHILS % (AUTO) 2.4 % (1.0-6.0); HEMATOCRIT 38.3 % (41-53); HEMOGLOBIN 12.5 g/dL (13.5-17.5); LYMPHOCYTES % (AUTO) 12.2 % (22.0-44.0); MEAN CORPUSCULAR HEMOGLOBIN 30.1 pg (26.0-34.0); MEAN CORPUSCULAR HGB CONC 32.6 G/dL (31.0-37.0); MEAN CORPUSCULAR VOLUME 92 fL (80-100); MONOCYTES # (AUTO) 0.4 K/uL (0.1-1.0); MONOCYTES % (AUTO) 4.8 % (2.0-9.0); NEUTROPHILS # (AUTO) 6.7 K/uL (1.8-7.7); NEUTROPHILS % (AUTO) 80.1 % (40.0-70.0); RED BLOOD CELL COUNT(AUTO) 4.15 MIL/uL (4.50-5.90); RED CELL DISTRIBUTION WIDTH 15.1 % (11.5-14.5); WHITE BLOOD COUNT (AUTO) 8.4 K/uL (4.5-11.0)
[2023-05-20 06:56] LABS: GLUCOMETER DEV NAME(LOC) ICUN.5; GLUCOSE,POINT OF CARE 157 MG/DL (70-110)
[2023-05-20 08:05] LABS: PLATELET COUNT (AUTO) 64 K/uL (150-450)
[2023-05-20 16:35] LABS: GLUCOMETER DEV NAME(LOC) ICUN.5; GLUCOSE,POINT OF CARE 174 MG/DL (70-110)
[2023-05-20] MEDS ORDERED: ALBUMIN HUMAN 25%-12.5GM/50ML IV BOTTLE IV ONE (16:51)
[2023-05-20] MEDS ORDERED: HEPARIN SODIUM,PORCINE 1,000 UNITS/ML VIAL IVP ONE (16:51)
[2023-05-20 18:16] LABS: GLUCOMETER DEV NAME(LOC) ICUN.5; GLUCOSE,POINT OF CARE 199 MG/DL (70-110)
[2023-05-20] MEDS ORDERED: INSULIN REGULAR, HUMAN 100 UNITS/ML IVP ONE (23:15)
[2023-05-21] VITALS (24 sets, daily range): BP systolic 115–206; BP diastolic 50–87; PULSE 56–96; RESP 30–36; TEMP 96.9–99; O2SAT 92–99
[2023-05-21 01:16] LABS: GLUCOMETER DEV NAME(LOC) ICUN.5; GLUCOSE,POINT OF CARE 197 MG/DL (70-110)
[2023-05-21] MEDS ORDERED: SODIUM CHLORIDE 0.9% 4,000 ML ONE (01:16)
[2023-05-21 05:52] LABS: BASOPHILS % (AUTO) 0.7 % (0.0-2.0); EOSINOPHILS % (AUTO) 1.7 % (1.0-6.0); HEMOGLOBIN 13.5 g/dL (13.5-17.5); LYMPHOCYTES % (AUTO) 5.9 % (22.0-44.0); MEAN CORPUSCULAR HEMOGLOBIN 30.2 pg (26.0-34.0); MEAN CORPUSCULAR VOLUME 92 fL (80-100); MONOCYTES % (AUTO) 5.9 % (2.0-9.0); NEUTROPHILS # (AUTO) 14.5 K/uL (1.8-7.7); PLATELET COUNT (AUTO) 78 K/uL (150-450); RED BLOOD CELL COUNT(AUTO) 4.46 MIL/uL (4.50-5.90); RED CELL DISTRIBUTION WIDTH 14.8 % (11.5-14.5); WHITE BLOOD COUNT (AUTO) 16.9 K/uL (4.5-11.0)
[2023-05-21 06:04] LABS: CALCIUM, TOTAL 7.7 mg/dL (8.8-10.5); CREATININE 5.27 mg/dL (0.60-1.30); MAGNESIUM 2.7 mg/dL (1.80-2.40); PHOSPHORUS 4.1 mg/dL (2.5-4.9); POTASSIUM 4.3 mmol/L (3.5-5.1); VANCOMYCIN,RANDOM 15.2 mcg/mL (25.0-50.0)
[2023-05-21 06:21] LABS: NEUTROPHILS % (AUTO) 85.8 % (40.0-70.0)
[2023-05-21 06:46] LABS: GLUCOMETER DEV NAME(LOC) ICUN.5; GLUCOSE,POINT OF CARE 171 MG/DL (70-110)
[2023-05-21] MEDS: DOXYCYCLINE HYCLATE 100 MG in DEXTROSE 5%-WATER 100 ML IV SCH (14:22)
[2023-05-21 16:45] LABS: GLUCOMETER DEV NAME(LOC) ICU.S6; GLUCOSE,POINT OF CARE 214 MG/DL (70-110)
[2023-05-21] MEDS ORDERED: ATROPINE SULFATE 0.1 MG/ML 10 ML SYRINGE IVP ONE (18:03)
[2023-05-21] MEDS: NOREPINEPHRINE 8 MG/0.9 % NACL 250 ML IV PRN (18:38)
[2023-05-21 19:36] LABS: GLUCOMETER DEV NAME(LOC) ICUN.5; GLUCOSE,POINT OF CARE 220 MG/DL (70-110)
[2023-05-21] MEDS ORDERED: SODIUM CHLORIDE 0.9% 250 ML IV ONE (20:15)
[2023-05-21] MEDS: ACETYLCYSTEINE 10% 100 MG/ML 4 ML NEB SOLUTION NEB SCH (21:28)
[2023-05-21] MEDS: IPRATROPIUM BROMIDE 0.5 MG/2.5 ML NEB SOLUTION NEB SCH (21:28)
[2023-05-21] MEDS: ALBUTEROL SULFATE 2.5 MG/0.5 ML NEB SOLUTION NEB SCH (21:28)
[2023-05-22] VITALS (30 sets, daily range): BP systolic 86–150; BP diastolic 47–65; PULSE 74–95; RESP 30; TEMP 97.3–98.4; O2SAT 92–96
[2023-05-22 00:46] LABS: GLUCOMETER DEV NAME(LOC) ICUN.5; GLUCOSE,POINT OF CARE 166 MG/DL (70-110)
[2023-05-22 05:33] LABS: HEMATOCRIT 36.8 % (41-53); MEAN CORPUSCULAR HEMOGLOBIN 30.1 pg (26.0-34.0); MEAN CORPUSCULAR HGB CONC 32.7 G/dL (31.0-37.0); MEAN CORPUSCULAR VOLUME 92 fL (80-100); PLATELET COUNT (AUTO) 99 K/uL (150-450); RED CELL DISTRIBUTION WIDTH 15.2 % (11.5-14.5); WHITE BLOOD COUNT (AUTO) 15.6 K/uL (4.5-11.0)
[2023-05-22 05:36] LABS: GLUCOMETER DEV NAME(LOC) ICU.S6; GLUCOSE,POINT OF CARE 166 MG/DL (70-110)
[2023-05-22 05:44] LABS: CALCIUM, TOTAL 7.5 mg/dL (8.8-10.5); CREATININE 7.03 mg/dL (0.60-1.30); POTASSIUM 5.2 mmol/L (3.5-5.1)
[2023-05-22 06:11] LABS: BAND NEUTROPHILS % (MANUAL) 18 % (0-5); LYMPHOCYTES % (MANUAL) 10 % (22-44); METAMYELOCYTES % 2 % (0-0); MONOCYTES % (MANUAL) 5 % (2-9); MYELOCYTES % 2 % (0-0); PLATELET MORPHOLOGY COMMENT LARGE PLTS PRESENT; RBC MORPHOLOGY COMMENT ABNORMAL RBC MORPH; SEGMENTED NEUTROPHILS % 63 % (40-70); TOTAL CELLS COUNTED 100
[2023-05-22] MEDS ORDERED: SODIUM CHLORIDE 0.9% 2,000 ML ONE (09:30)
[2023-05-22 15:56] LABS: GLUCOMETER DEV NAME(LOC) ICU.S6; GLUCOSE,POINT OF CARE 148 MG/DL (70-110)
[2023-05-22 17:51] LABS: GLUCOMETER DEV NAME(LOC) ICU.S6; GLUCOSE,POINT OF CARE 124 MG/DL (70-110)
[2023-05-22] MEDS: ALBUMIN HUMAN 25%-12.5GM/50ML IV BOTTLE IV PRN (19:44)
[2023-05-22] MEDS: HEPARIN SODIUM,PORCINE 1,000 UNITS/ML VIAL IVCATH ONE ×2 (19:44→19:45)
[2023-05-22] MEDS: CLINDAMYCIN 900 MG/D5% WATER 50 ML IV SCH (21:43)
[2023-05-23] VITALS (12 sets, daily range): BP systolic 93–107; BP diastolic 49–50; PULSE 88–97; RESP 30; TEMP 98.1; O2SAT 90–95
[2023-05-23 00:56] LABS: GLUCOMETER DEV NAME(LOC) ICUN.5; GLUCOSE,POINT OF CARE 102 MG/DL (70-110)
[2023-05-23 05:34] LABS: HEMATOCRIT 36.2 % (41-53); HEMOGLOBIN 11.6 g/dL (13.5-17.5); MEAN CORPUSCULAR HEMOGLOBIN 29.5 pg (26.0-34.0); MEAN CORPUSCULAR HGB CONC 31.9 G/dL (31.0-37.0); MEAN CORPUSCULAR VOLUME 93 fL (80-100); PLATELET COUNT (AUTO) 82 K/uL (150-450); RED BLOOD CELL COUNT(AUTO) 3.91 MIL/uL (4.50-5.90); RED CELL DISTRIBUTION WIDTH 15.2 % (11.5-14.5); WHITE BLOOD COUNT (AUTO) 14.3 K/uL (4.5-11.0)
[2023-05-23 05:46] LABS: CALCIUM, TOTAL 7.6 mg/dL (8.8-10.5); CREATININE 6.47 mg/dL (0.60-1.30); MAGNESIUM 2.5 mg/dL (1.80-2.40); POTASSIUM 4.3 mmol/L (3.5-5.1)
[2023-05-23 06:13] LABS: BAND NEUTROPHILS % (MANUAL) 6 % (0-5); LYMPHOCYTES % (MANUAL) 14 % (22-44); METAMYELOCYTES % 2 % (0-0); MONOCYTES % (MANUAL) 10 % (2-9); MYELOCYTES % 1 % (0-0); SEGMENTED NEUTROPHILS % 67 % (40-70); TOTAL CELLS COUNTED 100
[2023-05-23 06:37] LABS: GLUCOMETER DEV NAME(LOC) ICU.S6; GLUCOSE,POINT OF CARE 116 MG/DL (70-110)
[2023-05-23] MEDS ORDERED: SODIUM CHLORIDE 0.9% 250 ML IV ONE (07:43)
[2023-05-23] MEDS: MORPHINE SULFATE 2 MG/ML SYRINGE IVP PRN (11:45)
[2023-05-23] MEDS ORDERED: ALBUMIN HUMAN 25%-12.5GM/50ML IV BOTTLE IV ONE (15:37)
[2023-05-23] MEDS ORDERED: HEPARIN SODIUM,PORCINE 1,000 UNITS/ML VIAL IVP ONE (15:37)
== END 2023-05-23 15:38 | DRG 207 ==
LOC: EMS 23:37 → ICU 05-09 02:02
PROVIDERS: ADMIT Internal Medicine; ATTEND Internal Medicine
PROC: 30233N1 Transfusion of Nonautologous Red Blood Cells into Peripheral Vein, Percutaneous Approach (ICD-10-PCS; 2023-05-08)
PROC: 5A1955Z Respiratory Ventilation, Greater than 96 Consecutive Hours (ICD-10-PCS; principal; 2023-05-09)
PROC: 0BH17EZ Insertion of Endotracheal Airway into Trachea, Via Natural or Artificial Opening (ICD-10-PCS; 2023-05-09)
PROC: 5A1D70Z Performance of Urinary Filtration, Intermittent, Less than 6 Hours Per Day (ICD-10-PCS; 2023-05-18)
PROC: 5A1D70Z Performance of Urinary Filtration, Intermittent, Less than 6 Hours Per Day (ICD-10-PCS; 2023-05-19)
PROC: 5A1D70Z Performance of Urinary Filtration, Intermittent, Less than 6 Hours Per Day (ICD-10-PCS; 2023-05-21)
PROC: 5A1D70Z Performance of Urinary Filtration, Intermittent, Less than 6 Hours Per Day (ICD-10-PCS; 2023-05-22)
DX: J96.01 Acute respiratory failure with hypoxia (principal); I61.0 Nontraumatic intracerebral hemorrhage in hemisphere, subcortical; A41.9 Sepsis, unspecified organism; N17.0 Acute kidney failure with tubular necrosis; J15.211 Pneumonia due to Methicillin susceptible Staphylococcus aureus; Z99.11 Dependence on respirator [ventilator] status; I16.1 Hypertensive emergency; E87.0 Hyperosmolality and hypernatremia; E87.1 Hypo-osmolality and hyponatremia; Z68.41 Body mass index [BMI] 40.0-44.9, adult; E87.20 Acidosis, unspecified; E66.9 Obesity, unspecified; I48.0 Paroxysmal atrial fibrillation; E11.22 Type 2 diabetes mellitus with diabetic chronic kidney disease; E66.01 Morbid (severe) obesity due to excess calories; N18.9 Chronic kidney disease, unspecified; I12.9 Hypertensive chronic kidney disease with stage 1 through stage 4 chronic kidney disease, or unspecified chronic kidney disease; I95.9 Hypotension, unspecified; R80.9 Proteinuria, unspecified; E87.5 Hyperkalemia; R21 Rash and other nonspecific skin eruption; Z79.899 Other long term (current) drug therapy
CPT/HCPCS: 36245; 36569; 36600; 70450; 70496; 70498; 71045; 71250; 76937; 80048; 80053; 80202; 80307; 81001; 81002; 82550; 82570; 82805; 82948; 82962; 83735; 84100; 84295; 84300; 84484; 84540; 85025; 85610; 85730; 86850; 86900; 86901; 87040; 87070; 87077; 87081; 87086; 87186; 87205; 87340; 87804; 90935; 93005; 93306; 93970; 94002; 94003; 94640; 99291; C9113; J0131; J0282; J0360; J0461; J0690; J0692; J0712; J1644; J1815; J1940; J2060; J2250; J2270; J2704; J3370; J3480; J3490; J7030; J7050; J7060; P9047; Q9967; 36415-L1; 36415-TC; J7613